=== PATIENT | female | born 2005 | race Caucasian/White ===

== ENCOUNTER 2023-06-06 04:12 | Day surgery (SDC) | payer OTHER ==
[2023-06-02 17:30] VITALS: BMI 19.4
[2023-06-06] MEDS ORDERED: BUPIVACAINE HCL/PF 0.25% (2.5MG/ML) 10 ML VIAL ONE ×2 (09:40→09:49)
[2023-06-06] MEDS ORDERED: IBUPROFEN 800 MG/8 ML IJ IVPB PRN (09:50)
[2023-06-06] MEDS ORDERED: oxyCODONE HCL 5 MG TABLET PO PRN (09:50)
[2023-06-06] MEDS ORDERED: IBUPROFEN 600 MG TABLET (FP) PO PRN (09:50)
[2023-06-06] MEDS ORDERED: ONDANSETRON 4 MG/2 ML VIAL IVPUSH PRN (09:50)
[2023-06-06] MEDS ORDERED: MIDAZOLAM HCL 2 MG/2 ML SINGLE DOSE VIAL ONE (09:57)
[2023-06-06] MEDS ORDERED: PROPOFOL 20 ML ONE (09:57)
[2023-06-06] MEDS ORDERED: LIDOCAINE HCL/PF 2% SDV 5ML VIAL ONE (09:58)
[2023-06-06] MEDS ORDERED: ELECTROLYTE-148 SOLN 1,000 ML IV SCH (10:00)
[2023-06-06] MEDS ORDERED: LACTATED RINGERS SOLUTION 1,000 ML IV SCH (10:15)
[2023-06-06] MEDS: BUPIVACAINE HCL/PF 0.25% (2.5MG/ML) 10 ML VIAL IJ ONE ×2 (10:24)
[2023-06-06] MEDS ORDERED: KETOROLAC TROMETHAMINE 30 MG/1 ML VIAL ONE (10:24)
[2023-06-06] MEDS ORDERED: ONDANSETRON 4 MG/2 ML VIAL ONE (10:24)
[2023-06-06 11:47] VITALS: RESP 18
[2023-06-06 12:27] VITALS: BP 118/68; PULSE 68; TEMP 97.8
== END 2023-06-06 12:25 | disposition home or self-care (01) ==
LOC: JASU-SURG 04:12
PROVIDERS: ATTEND Obstetrics & Gynecology
PROC: 0UBK7ZZ Excision of Hymen, Via Natural or Artificial Opening (ICD-10-PCS; principal; 2023-06-06 10:00)
DX: Q52.4 Other congenital malformations of vagina (principal)
CPT/HCPCS: 81025; 88304-TC; 94760